=== PATIENT | male | born 1985 | race Caucasian/White ===

== ENCOUNTER 2021-01-21 18:18 | Emergency (ER) | payer SELFPAY ==
[2021-01-21] MEDS ORDERED: MOBIC7.5 MG PO (19:39)
[2021-01-21] MEDS ORDERED: PREDNISONE 20MG20 MG PO (19:39)
== END 2021-01-21 20:03 | disposition home or self-care (01) ==
LOC: FER 18:18
DX: S83.411A Sprain of medial collateral ligament of right knee, initial encounter (principal); F17.200 Nicotine dependence, unspecified, uncomplicated; X58.XXXA Exposure to other specified factors, initial encounter
CPT/HCPCS: 73564